=== PATIENT | male | born 1980 ===

== ENCOUNTER 2024-09-01 14:58 | Emergency (ER) | payer OTHER, SELFPAY ==
--- NOTE | ~2024-09-01 | XR_ITS ---
EXAMINATION: XR LUMBOSACRAL SPINE CLINICAL INFORMATION: L sided pain, fall at work COMPARISON: None available. TECHNIQUE: Three views of the lumbosacral spine. FINDINGS: No significant scoliosis. Normal lordosis. No subluxations. No fracture, compression deformity, or suspicious bone lesion. Early multilevel disc degeneration. Normal facet alignment. Early facet degeneration L4-S1. No soft tissue abnormalities. XR/XR lumbar spine 2-3V IMPRESSION: No acute findings of the lumbar spine. Electronically signed by: Joshua Hollins MD 09/01/2024 04:14 PM EDT
--- NOTE | ~2024-09-01 | CT_ITS ---
CLINICAL HISTORY: Fall blunt trauma left lower ribs CT abdomen and pelvis with contrast Comparison: None provided Findings: No consolidation or effusion. Unremarkable gallbladder and solid organs. No urolithiasis. No bowel obstruction, pneumoperitoneum, or pneumatosis. Pelvic contents unremarkable. Normal appendix. The bones are intact. IMPRESSION: No acute findings. This document has been electronically signed by: Ernst Avalos MD on 09/01/2024 21:50:17
--- NOTE | ~2024-09-01 | XR_ITS ---
EXAMINATION: XR SHOULDER, RIGHT CLINICAL INFORMATION: fall at work COMPARISON: None available. TECHNIQUE: AP external rotation, Grashey, scapular Y, and axillary views of the right shoulder. FINDINGS: Normal bone mineralization. No fracture, dislocation, or suspicious bone lesion. Normal alignment. The glenohumeral joint is normal. The AC joint is normal. There is a type II acromion. No undersurface spurring. The subacromial space is preserved. Remainder of the soft tissue and bony structures appear normal. XR/XR shoulder RT min 2V IMPRESSION: No acute bony abnormalities right shoulder. Electronically signed by: Joshua Hollins MD 09/01/2024 04:12 PM EDT
--- NOTE | ~2024-09-01 | CT_ITS ---
CLINICAL HISTORY: Fall blunt trauma left lower ribs CT chest with contrast Comparison: None provided Findings: The heart size is normal. The visualized thyroid and mediastinum are unremarkable. No consolidation or effusion. The visualized upper abdomen is unremarkable. No acute fractures. IMPRESSION: 1. Unremarkable chest CT. This document has been electronically signed by: Ernst Avalos MD on 09/01/2024 21:49:42
--- NOTE | 2024-09-01 15:27 | ED.GENADULT ---
HPI - General Adult General Chief complaint: Fall Stated complaint: work fall, Back/ R foot and shoulder pain Time Seen by Provider: 09/01/24 18:02 Source: patient Mode of arrival: ambulatory Limitations: no limitations History of Present Illness ED Provider: HPI narrative: Patient was apparently at work putting the freezer on the shelf slipped in the ladder last step and fell onto his back hitting the right lower ribs on to the ladder also complaining of pain in the right shoulder and superficial abrasion to the left lower extremity Related Data Previous Rx's ?Medication ?Instructions ?Recorded cyclobenzaprine 10 mg tablet 10 mg PO Q8H #20 tabs 09/01/24 ibuprofen 600 mg tablet 600 mg PO Q6H PRN fever or pain 09/01/24 #30 tabs Allergies Allergy/AdvReac Type Severity Reaction Status Date / Time No Known Allergies Allergy Verified 09/01/24 15:31 Review of Systems Review of Systems: Yes all other systems are reviewed and are negative [facility] Social History Social History Smoked in Last 30 Days: No Substance Use Type: Marijuana Advance Directives: No Advance Directives Information Provided: No Do you have a plan to hurt others: No Plan Physical Exam ED Vital Signs: Vital Signs - 24 hr 09/01/24 22:55 Temperature 98.3 F Pulse Rate 72 Respiratory Rate 16 Blood Pressure 116/74 Pulse Oximetry 98 Oxygen Delivery Method Room Air BMI result Body Mass Index 38.1 Appearance: Alert. Oriented X3. No acute distress. Eyes: PERRLA, No Nystagmus ENT: Pharynx normal. Oral Mucosa moist Neck: Normal inspection. Neck supple. CVS: Normal heart rate and rhythm. Pulses normal. Respiratory: No respiratory distress. Equal air entry bilateral, no wheezing/rales/rhonchi tenderness right lower ribs in mid axillary and posterior area no crepitation Abdomen: Soft and nontender. Bowel sounds are present, no mass palpable, no CVA tenderness Skin: Skin warm and dry. Normal skin color. Normal skin turgor. Extremities: No lower extremity edema. No calf tenderness diffuse tenderness right shoulder no deformity good range of movement superficial abrasion right lower extremity Neuro: Oriented X 3. No motor deficit. No sensory deficit.No cerebellar signs , cranial nerves II-XII intact Course Course Course Narrative: This is a rapid medical exam performed by Radha Burgess NP: Additional HPI, ROS, PE not included below will be deferred to primary provider. Patient is a 44-year-old male presenting to the ED with complaint of right shoulder pain, left sided back pain after a fall at work prior to arrival. States he was coming down from a ladder in the freezer and it was wet, he slipped on last step of ladder and fell onto his back. Braced himself with right arm. Also has small laceration to right [place] from hitting leg on ladder. Denies head strike or LOC, not anticoagulated. Plan: imaging Medications Administered Discontinued Medications Generic Name Dose Route Start Last Admin Trade Name Freq PRN Reason Stop Dose Admin Cyclobenzaprine HCl 10 mg 09/01/24 22:34 09/01/24 22:50 Cyclobenzaprine Hcl 10 Mg Tablet PO 09/01/24 22:35 10 mg ONCE ONE Administration Acetaminophen 1,000 mg in 100 mls @ 400 mls/hr 09/01/24 18:17 09/01/24 22:49 Ofirmev IV 09/01/24 18:31 Infused ONCE ONE Infusion Iohexol 100 ml 09/01/24 21:04 09/01/24 21:04 Iohexol 350 Mg/Ml 100 Ml Infus..Btl IV 09/01/24 21:05 100 ml ONCE ONE Administration Ketorolac Tromethamine 30 mg 09/01/24 22:34 09/01/24 22:49 Ketorolac Tromethamine 30 Mg/Ml Vial IVPUSH 09/01/24 22:35 30 mg ONCE ONE Administration Medical Decision Making Medical Decision Making [facility] Narrative: Patient s/p minor fall CT scan of the head and C-spine negative CT scan of the chest and abdomen also negative for acute patient ambulatory in the ED Differential Diagnosis Differential Diagnoses: The differential diagnosis associated with the presentation includes Rib fracture/ internal injuries/splenic injury/liver laceration/hemothorax/subarachnoid bleed/subdural bleed/cervical fracture Lab Data [facility] Lab Attestation statement: I reviewed the patient's lab results. 09/01/24 18:27 09/01/24 18:27 Labs: Lab Results 09/01/24 Range/Units 18:27 WBC 10.1 (4.8-10.8) X10*3/uL RBC 5.38 (4.60-5.80) X10*6/uL Hgb 15.5 (14.0-18.0) g/dl Hct 46.3 (42.0-52.0) % MCV 86.1 (80.0-98.0) fL MCH 28.8 (27.0-33.0) pg MCHC 33.5 (31.0-36.0) g/dl RDW 12.9 (11.0-16.0) % Plt Count 237 (160-400) X10*3/uL MPV 10.1 (9.4-12.4) fL Immature Gran % (Auto) 0.9 H (0.0-0.4) % Neut % (Auto) 72.1 (45-73) % Lymph % (Auto) 19.1 L (20-40) % Whitman % (Auto) 6.3 (2-11) % Eos % (Auto) 1.2 (0-4) % Baso % (Auto) 0.4 (0-2) % Lymph # (Auto) 1.9 (1.2-4.9) X10*3/uL Whitman # (Auto) 0.6 (0.1-1.2) X10*3/uL Eos # (Auto) 0.1 (0.0-0.4) X10*3/uL Baso # (Auto) 0.0 (0.0-0.2) X10*3/uL Abs Immat Gran (auto) 0.09 H (0.00-0.03) X10*3/uL Absolute Neuts (auto) 7.3 (2.0-8.3) x10*3/uL Absolute Nucleated RBC 0.000 (0.0-0.012) X10*3/uL Nucleated RBC % (auto) 0.0 (0.0-0.2) /100WBC Sodium 140 (135-145) mmol/L Potassium 3.8 (3.3-5.1) mmol/L Chloride 105 (96-108) mmol/L Carbon Dioxide 26 (22-29) mmol/L Anion Gap 13 (12-20) BUN 16 (9-16) mg/dL Creatinine 0.91 (0.5-1.4) mg/dL Estim Creat Clear Calc 133.3 Estimated GFR > 60 Random Glucose 78 (60-115) mg/dL Calcium 9.1 (8.4-10.2) mg/dL Independent Interpretation I performed an independent interpretation of an: CT Scan Radiology Impression Discussion of test interpretation with radiology: I have reviewed the radiologist's reading. Discharge Plan Discharge Clinical Impression: Contusion of rib on left side, Fall, Back pain Patient Disposition: Home, Self-Care Instructions: Acute Low Back Pain (ED), Blunt Chest Trauma (ED) Additional Instructions: Rest at home apply ice at painful area Take pain medication and muscle relaxant as prescribed Follow with the PCP as needed Prescriptions: New cyclobenzaprine 10 mg tablet 10 mg PO Q8H Qty: 20 0RF ibuprofen 600 mg tablet 600 mg PO Q6H PRN (Reason: fever or pain) Qty: 30 0RF Stand Alone Forms: Work/School Release Interventions: ED Discharge Assessment Last Done: 09/01/24 22:55 Discharge Date/Time: 09/01/24 22:57 Print Language: [place] Citizen
[2024-09-01 15:28] VITALS: BP 127/84; PULSE 102; RESP 16; TEMP 36.5; O2SAT 96; BMI 38.1
[2024-09-01 18:30] VITALS: BP 124/81; PULSE 93; RESP 16; TEMP 36.6; O2SAT 97
[2024-09-01 18:31] LABS: MANUAL DIFF FLAG NO
[2024-09-01 18:46] LABS: Anion Gap 13 (12-20); Blood Urea Nitrogen 16 mg/dL (9-16); Calcium 9.1 mg/dL (8.4-10.2); Carbon Dioxide 26 mmol/L (22-29); Chloride 105 mmol/L (96-108); Creatinine Clr Calc Pharmacy 133.3; Estimated Glomerular Filt Rate > 60; Potassium 3.8 mmol/L (3.3-5.1); Sodium 140 mmol/L (135-145)
--- OUTSIDE RECORDS SUMMARY | 2024-09-01 18:49 | XMS_ITS | Clinical Summary ---
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 Role Phone Unavailable Primary Care Provider Unavailabl e Social History Tobacco Use Types Packs/Day Years Used Date Smoking Tobacco: Never Assessed Sex and Gender Information Value Date Recorded Sex Assigned at Not on file Legal Sex Male 5:05 AM EST Gender Identity Not on file Sexual Orientation Not on file Plan of Treatment Health Maintenance Due Date Last Done Comments DTaP,Tdap,and Td Vaccines (1 - Tdap) 2001 Hepatitis B Vaccines (1 of 3 - 19+ 3-dose series) 2001 Cholesterol Screening (Lipid Panel) 01/13/2022 HIV Screening 01/13/2022 Hepatitis C Screening 01/13/2022 Social Influencers of Health Screening 01/13/2022 COVID-19 Vaccine ( - 2023-2 5 season) 2023 Depression Screening 02/11/2024 Influenza Vaccine (#1) 2024 HIB Vaccines Aged Out No longer eligi ble based on patient's age to complete this topic HPV Vaccines Aged Out No longer eligi ble based on patient's age to complete this topic Hepatitis A Vaccines Aged Out No long er eligible based on patient's age to complete this topic IPV Vaccines Aged Out No longer eligi ble based on patient's age to complete this topic MMR Vaccines Aged Out No longer eligi ble based on patient's age to complete this topic Meningococcal ACWY Vaccine Aged Out N o longer eligible based on patient's age to complete this topic Meningococcal B Vaccine Aged Out No l onger eligible based on patient's age to complete this topic Pneumococcal Vaccine: Pediat rics (0 to 5 Years) and At-Risk Patients (6 to 49 Years) Aged Out No longer eligible b ased on patient's age to complete this topic RSV Immunization Patients Un carli 20 months Aged Out No longer eligible b ased on patient's age to complete this topic Varicella Vaccines Aged Out No longer eligible based on patient's age to complete this topic
[2024-09-01 18:53] LABS: Hematocrit 46.3 % (42.0-52.0); Hemoglobin 15.5 g/dl (14.0-18.0); Imm Gran Abs Auto 0.09 X10*3/uL (0.00-0.03); Imm Gran Pct Auto 0.9 % (0.0-0.4); Lymphocytes Absolute Auto 1.9 X10*3/uL (1.2-4.9); Mean Corpuscular HGB Conc 33.5 g/dl (31.0-36.0); Mean Corpuscular Hemoglobin 28.8 pg (27.0-33.0); Mean Corpuscular Volume 86.1 fL (80.0-98.0); NRBC Abs Auto 0.000 X10*3/uL (0.0-0.012); NRBC Pct Auto 0.0 /100WBC (0.0-0.2); Platelet Count 237 X10*3/uL (160-400); Red Blood Count 5.38 X10*6/uL (4.60-5.80); White Blood Count 10.1 X10*3/uL (4.8-10.8)
--- NOTE | 2024-09-01 20:13 | PC.NURSE ---
RN asked Dr. Prado for assistance in US guided IV- Provider was able to place a #20 on the LAC.
[2024-09-01] MEDS: iohexoL 350 MG/ML 100 ML INFUS..BTL IV (21:04)
[2024-09-01 21:46] VITALS: BP 116/74; PULSE 72; RESP 16; TEMP 36.8; O2SAT 98
[2024-09-01 22:55] VITALS: BP 116/74; PULSE 72; RESP 16; TEMP 36.8; O2SAT 98
== END 2024-09-01 22:57 | disposition home or self-care (01) ==
PROVIDERS: Emergency Provider Internal Medicine
DX: S20.212A Contusion of left front wall of thorax, initial encounter (principal); M54.50 Low back pain, unspecified; R10.2 Pelvic and perineal pain; M25.511 Pain in right shoulder; X58.XXXA Exposure to other specified factors, initial encounter; W11.XXXA Fall on and from ladder, initial encounter; Y93.9 Activity, unspecified; Y92.9 Unspecified place or not applicable; Y99.0 Civilian activity done for income or pay
CPT/HCPCS: 36415; 71260; 72100; 73030; 74177; 80048; 85025; 96365; 96366; 96375; 99284; J0131; J1885; Q9967

== ENCOUNTER → 2024-09-01 15:31 | Outpatient (BNV) | payer OTHER, SELFPAY | PROVIDERS: Visit Provider Radiology Diagnostic Radiology | DX: S22.42XA Multiple fractures of ribs, left side, initial encounter for closed fracture (principal); M54.50 Low back pain, unspecified; M25.511 Pain in right shoulder; W19.XXXA Unspecified fall, initial encounter; Y99.0 Civilian activity done for income or pay | CPT/HCPCS: 71260; 72100; 73030; 74177 ==